=== PATIENT | female | born 1985 | race Caucasian/White ===

== ENCOUNTER 2019-05-09 23:22 | Emergency (ER) | payer OTHER ==
[2019-05-09] MEDS ORDERED: ATIVAN IV ONE (23:44)
[2019-05-09] MEDS ORDERED: NACL 0.9% 1000 ML 1,000 ML IV ONE ×2 (23:45→23:47)
[2019-05-09] MEDS ORDERED: ATIVAN ONE (23:45)
[2019-05-09] MEDS ORDERED: NACL 0.9% 1000 ML 1,000 ML ONE (23:48)
--- NOTE | 2019-05-09 23:55 | Emergency Department Report ---
ED Alcohol HPI - General Chief Complaint: Altered Mental Status Stated Complaint: AMS/ETOH Time Seen by Provider: 05/09/19 23:45 Source: patient, family, EMS Mode of arrival: Stretcher Limitations: Altered Mental Status - History of Present Illness Initial Comments: Mrs. Wilson is a 33 yo female who presents with alcohol intoxication and dyspnea. She had chest heaviness and dyspnea immiedately after vomiting. Arrived via EMS. Appeared to be hyperventilationg. She normally does not drink alcohol. She drank several shots of cognac. No depression. No intentional overdose. She was just partying with her family. Her is at the bedside. She works as a recreational therapy technician. She has Implanon for oral contraception. Family history mother has history of asthma. She has a history of breast augmentation. MD Complaint: alcohol intoxication Last Drink: just [employer] Chronic Alcohol Use: No Previous Visits for Alcohol Intoxication?: No Recent Trauma: No Associated Symptoms: other (chest heaviness shortness of breath) Treatments Prior to Arrival: none - Related Data Allergies Allergy/AdvReac Type Severity Reaction Status Date / Time No Known Allergies Allergy Verified 05/09/19 23:47 ED Review of Systems ROS: Stated complaint: AMS/ETOH Other details as noted in HPI Comment: Unobtainable due to pts medical conditions (acute intoxication) ED Past Medical Hx - Past Medical History Previous Medical History?: No - Surgical History Past Surgical History?: No - Social History Smoking Status: Never Smoker Substance Use Type: Alcohol ED Physical Exam - General Limitations: Altered Mental Status General appearance: alert, appears intoxicated, other (hyperventilating) - Head Head exam: Present: atraumatic, normocephalic - Eye Eye exam: Present: normal appearance, PERRL, EOMI Pupils: Present: normal accommodation - ENT ENT exam: Present: normal orophraynx - Neck Neck exam: Present: normal inspection, full ROM. Absent: tenderness, meningismus - Respiratory Respiratory exam: Present: normal lung sounds bilaterally. Absent: respiratory distress, wheezes, rales, rhonchi - Cardiovascular Cardiovascular Exam: Present: regular rate, normal rhythm, normal heart sounds - GI/Abdominal GI/Abdominal exam: Present: soft. Absent: distended, tenderness, guarding, rebound - Neurological Exam Neurological exam: Present: alert, oriented X3 - Psychiatric Psychiatric exam: Present: anxious - Skin Skin exam: Present: warm, dry, intact, normal color ED Course Vital Signs 05/09/19 05/09/19 05/09/19 23:30 23:46 23:53 Temperature 97.8 F Pulse Rate 106 H 103 H 101 H Respiratory 26 H 33 H 35 H Rate Blood Pressure 107/38 Blood Pressure 107/38 [Right] O2 Sat by Pulse 100 100 Oximetry 05/10/19 05/10/19 05/10/19 00:00 00:15 00:30 Temperature Pulse Rate 100 H 93 H 83 Respiratory 28 H 30 H 22 Rate Blood Pressure 97/43 99/56 96/48 Blood Pressure [Right] O2 Sat by Pulse 100 100 100 Oximetry 05/10/19 05/10/19 05/10/19 01:00 01:16 01:30 Temperature Pulse Rate 81 85 86 Respiratory 18 17 17 Rate Blood Pressure 86/36 86/36 91/41 Blood Pressure [Right] O2 Sat by Pulse 100 100 100 Oximetry 05/10/19 05/10/19 05/10/19 02:00 02:16 02:30 Temperature Pulse Rate 90 81 88 Respiratory 20 19 19 Rate Blood Pressure 90/47 90/47 95/40 Blood Pressure [Right] O2 Sat by Pulse 100 100 100 Oximetry 05/10/19 05/10/19 05/10/19 02:46 03:00 03:16 Temperature Pulse Rate 81 88 97 H Respiratory 17 20 23 Rate Blood Pressure 95/40 85/42 84/48 Blood Pressure [Right] O2 Sat by Pulse 100 100 99 Oximetry ED Medical Decision Making - Lab Data Result diagrams: 05/09/19 Unknown 05/09/19 Unknown - EKG Data EKG shows normal: sinus rhythm, axis, intervals, QRS complexes, ST-T waves Rate: normal - Radiology Data Radiology results: report reviewed, image reviewed AP portable chest interpreted by me. My impression: No infiltrate, no pneumothorax, normal cardiac silhouette, normal mediastinum, no gross osseous abnormality, no acute process According to radiology report: Chest x-ray has mild interstitial disease unclear if chronic or acute - Medical Decision Making Mrs. Wilson presents with alcohol poisoning and alcoholic ketoacidosis. Given IV fluid monitor given IV lorazepam for erratic behavior. Anticipate discharge once awake and sober. She has had mild hypotension. However tachycardia has resolved after IVF. We will find appropriate cuff for her stature. Critical care attestation.: If time is entered above; I have spent that time in minutes in the direct care of this critically ill patient, excluding procedure time. ED Disposition Clinical Impression: Alcohol poisoning, Alcoholic ketoacidosis Disposition: -01 TO HOME OR SELFCARE Is pt being admited?: No Does the pt Need Aspirin: No Condition: Stable Instructions: Alcohol Intoxication (ED) Referrals: CARLEE MANZANO MD [Primary Care Provider] - 3-5 Days
[2019-05-10 00:15] LABS: Basophils % (Auto) 0.4 % (0.0-1.8); Eosinophils # (Auto) 0.2 K/mm3 (0.0-0.4); Hematocrit 36.4 % (30.3-42.9); Lymphocytes # (Auto) 2.1 K/mm3 (1.2-5.4); Lymphocytes % (Auto) 27.9 % (13.4-35.0); Mean Corpuscular HGB Conc 33 % (30-34); Mean Corpuscular Volume 80 fl (79-97); Monocytes # (Auto) 0.4 K/mm3 (0.0-0.8); Monocytes % (Auto) 5.3 % (0.0-7.3); Platelet Count 252 K/mm3 (140-440); Red Blood Count 4.57 M/mm3 (3.65-5.03); Red Cell Distribution Width 13.6 % (13.2-15.2)
--- NOTE | 2019-05-10 00:16 | XRay Report ---
CHEST 1 VIEW INDICATION / CLINICAL INFORMATION: Altered Mental Status. COMPARISON: None available. FINDINGS: SUPPORT DEVICES: None. HEART / MEDIASTINUM: No significant abnormality. LUNGS / PLEURA: There is mild interstitial prominence bilaterally which is nonspecific. Unfortunately without prior chest radiographs it is difficult to determine whether this is acute or chronic inters titial disease. I do not see any findings to suggest bacterial pneumonia or pleural effusion. No pneu mothorax. ADDITIONAL FINDINGS: No significant osseous abnormality. IMPRESSION: 1. Mild interstitial disease bilaterally of uncertain clinical significance. As I do not have prior c hest radiographs, it is unclear if this is an acute interstitial or chronic interstitial process. 2. No other significant abnormality. Signer Name: Zoë Rodriguez MD Signed: 05/10/2019 12:11 AM Workstation Name: [id number]
[2019-05-10 00:33] LABS: Alanine Aminotransferase 23 units/L (7-56); Albumin 4.2 g/dL (3.9-5); BUN/Creatinine Ratio 28; Blood Urea Nitrogen 17 mg/dL (7-17); Calcium 8.7 mg/dL (8.4-10.2); Hemolysis Index 7
[2019-05-10] MEDS ORDERED: NACL 0.9% 1000 ML 1,000 ML IV ONE ×2 (01:16→03:26)
[2019-05-10 04:32] VITALS: BP 97/59
== END 2019-05-10 04:52 | disposition home or self-care (01) ==
LOC: ED 23:22
DX: T51.91XA Toxic effect of unspecified alcohol, accidental (unintentional), initial encounter (principal); F10.129 Alcohol abuse with intoxication, unspecified; E87.2 Acidosis; I95.9 Hypotension, unspecified; R41.82 Altered mental status, unspecified; Y92.89 Other specified places as the place of occurrence of the external cause
CPT/HCPCS: 36415; 71045; 80053; 85025; 93005; 93010; 96361; 96374; 99285; G0480; J2060; J7030; 80320